=== PATIENT | female | born 1995 | race Caucasian/White ===

== ENCOUNTER 2017-03-17 13:34 | Emergency (ER) | payer OTHER ==
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
[2017-03-17 13:55] VITALS: BP 143/92; BMI 21.9
[2017-03-17] MEDS ORDERED: MOTRIN TAB 800 MG PO ONE ×2 (14:17→14:22)
[2017-03-17 14:35] LABS: SERUM PREGNANCY TEST, QUAL NEGATIVE <10 mIU/mL
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
== END 2017-03-17 15:22 | disposition home or self-care (01) ==
LOC: ER 13:34
PROC: 0WQ20ZZ Repair Face, Open Approach (ICD-10-PCS; principal; 2017-03-17)
DX: S80.01XA Contusion of right knee, initial encounter (principal); S01.81XA Laceration without foreign body of other part of head, initial encounter; V49.9XXA Car occupant (driver) (passenger) injured in unspecified traffic accident, initial encounter; J34.89 Other specified disorders of nose and nasal sinuses
CPT/HCPCS: 12011; 36415; 70486; 72125; 73564; 84703; 99282; 99283